=== PATIENT | female | born 1955 | race Caucasian/White ===

== ENCOUNTER → 2017-01-09 | Outpatient (CLI) | payer BC, OTHER | LOC: MAMMO 01-08 16:19 | DX: Z12.31 Encounter for screening mammogram for malignant neoplasm of breast (principal) | CPT/HCPCS: G0202 ==

== ENCOUNTER → 2017-10-22 | Outpatient (CLI) | payer BC, OTHER | LOC: MAMMO 14:21 → RAD 14:30 → MAMMO 14:30 | DX: Z12.31 Encounter for screening mammogram for malignant neoplasm of breast (principal) ==

== ENCOUNTER → 2018-11-10 | Outpatient (CLI) | payer MEDICARE, BC, OTHER | LOC: MAMMO 10:45 | DX: Z12.31 Encounter for screening mammogram for malignant neoplasm of breast (principal) ==

== ENCOUNTER → 2020-10-18 | Outpatient (CLI) | payer MEDICARE, BC, OTHER | LOC: RAD 09:01 → MAMMO 10:00 | DX: Z13.820 Encounter for screening for osteoporosis (principal); M81.0 Age-related osteoporosis without current pathological fracture; M85.80 Other specified disorders of bone density and structure, unspecified site; Z78.0 Asymptomatic menopausal state ==

== ENCOUNTER → 2020-10-18 | Outpatient (CLI) | payer MEDICARE, BC, OTHER | LOC: MAMMO 08:51 | DX: Z12.31 Encounter for screening mammogram for malignant neoplasm of breast (principal) ==

== ENCOUNTER → 2021-10-24 | Outpatient (CLI) | payer MEDICARE, BC, OTHER | LOC: MAMMO 10-22 10:15 | DX: Z12.31 Encounter for screening mammogram for malignant neoplasm of breast (principal) ==

== ENCOUNTER → 2022-07-17 | Outpatient (CLI) | payer MEDICARE, BC, OTHER | LOC: RAD 11:51 | DX: M79.642 Pain in left hand (principal); M25.562 Pain in left knee; M25.561 Pain in right knee; Z96.652 Presence of left artificial knee joint; Z96.651 Presence of right artificial knee joint; W19.XXXD Unspecified fall, subsequent encounter ==